=== PATIENT | female | born 1955 | race African-American/Black ===

== ENCOUNTER 2022-07-29 08:19 | Emergency (ER) | payer BC, OTHER ==
[~2022-07-29] VITALS: Ht 165.1 cm; Wt 77.1 kg
[~2022-07-29 08:19] MED LIST: AMLODIPINE BESYLATE 10 MG TAB; ATOR20TA PO; ATORVASTATIN 20 MG TABLET; CHLO1CAP32 PO; CIPR-262 PO; DULOXETINE HCL DR 60 MG CAP; HYDR-3642 PO; HYDR25TA4 PO; IBUP-1953 PO; IVERMECTIN 3 MG TABLET; NEBI10TA2 PO
--- NOTE | 2022-07-29 08:48 | NUR ---
Pt walked into ER c/o "My left eye has been swollen/cant open it x1wk" Denies injury.
--- NOTE | 2022-07-29 09:01 | NUR ---
AT BEDSIDE FOR EVAL
[2022-07-29] MEDS ORDERED: AMOX-430 PO (10:07)
[2022-07-29 10:22] VITALS: BP 152/88
--- NOTE | 2022-07-29 10:22 | NUR ---
Patient discharged to home in stable condition. Written and verbal after care instructions given. Patient verbalizes understanding of instruction.
== END 2022-07-29 10:23 | disposition home or self-care (01) ==
LOC: ER 08:29
DX: L03.213 Periorbital cellulitis (principal); I10 Essential (primary) hypertension; Z79.899 Other long term (current) drug therapy